=== PATIENT | female | born 1970 | race Caucasian/White ===

== ENCOUNTER 2017-03-14 05:46 | Day surgery (SDC) | payer MEDICAID ==
[~2017-03-14 05:46] MED LIST: BYSTOLIC5 M1 PO; DICLOFENAC SODI75 M2 PO; FLONASE ALLERG9.9 ML; GLUCOPHAGE500 M3 PO; LIDOCAINE 5% PATCH TOP; NO MEDS; PATADAY2.5 M1 EACH EYE; PROTONIX40 M2 PO; TYLENOL325 M2 PO; [UNRECOGNIZED DRUG - REMARK]
[2017-03-15] MEDS ORDERED: PERCOCET 5-3251 EACH PO (01:42)
[2017-03-15] MEDS ORDERED: ULTRAM50 M1 PO (09:21)
[2017-03-15] MEDS ORDERED: ZOFRAN4 M2 PO (09:22)
== END 2017-03-15 11:00 ==
LOC: WSU 05:46 → SHSA 05:53 → PACU 09:51 → OBGF 11:55
PROC: 0UT94ZZ Resection of Uterus, Percutaneous Endoscopic Approach (ICD-10-PCS; principal; 2017-03-14)
PROC: 0UTC4ZZ Resection of Cervix, Percutaneous Endoscopic Approach (ICD-10-PCS; 2017-03-14)
PROC: 0UT74ZZ Resection of Bilateral Fallopian Tubes, Percutaneous Endoscopic Approach (ICD-10-PCS; 2017-03-14)
PROC: 8E0W4CZ Robotic Assisted Procedure of Trunk Region, Percutaneous Endoscopic Approach (ICD-10-PCS; 2017-03-14)
DX: D25.1 Intramural leiomyoma of uterus (principal); N72 Inflammatory disease of cervix uteri; N84.0 Polyp of corpus uteri; N80.0 Endometriosis of uterus; N83.8 Other noninflammatory disorders of ovary, fallopian tube and broad ligament; I47.1 Supraventricular tachycardia; E11.9 Type 2 diabetes mellitus without complications; E78.5 Hyperlipidemia, unspecified; I10 Essential (primary) hypertension; Z79.84 Long term (current) use of oral hypoglycemic drugs; Z79.899 Other long term (current) drug therapy; Z90.49 Acquired absence of other specified parts of digestive tract; Z98.51 Tubal ligation status; Z98.890 Other specified postprocedural states
CPT/HCPCS: J0690; J1170; J2405; J3010; J7030